=== PATIENT | female | born 1960 | race Two or more races ===

== ENCOUNTER 2020-02-25 07:21 | Emergency (ER) | payer OTHER ==
[~2020-02-25] VITALS: Ht 152.4 cm; Wt 63.5 kg
[~2020-02-25 07:21] MED LIST: CIPRO500 MG; URETRON DS1 TAB
== END 2020-02-25 12:54 | disposition home or self-care (01) ==
LOC: ER 07:21
DX: K21.9 Gastro-esophageal reflux disease without esophagitis (principal); J06.9 Acute upper respiratory infection, unspecified; Z03.818 Encounter for observation for suspected exposure to other biological agents ruled out; R07.89 Other chest pain

== ENCOUNTER 2020-03-20 10:45 | Inpatient (IN) | payer OTHER ==
[~2020-03-20] VITALS: Ht 157.5 cm; Wt 65.8 kg
== END 2020-03-23 11:46 | disposition home or self-care (01) | DRG 392 ==
LOC: ER 10:45 → MEDJ 21:26
PROVIDERS: ADMIT Internal Medicine; ATTEND Internal Medicine
PROC: BW21ZZZ Computerized Tomography (CT Scan) of Abdomen and Pelvis (ICD-10-PCS; principal; 2020-03-20)
DX: K52.89 Other specified noninfective gastroenteritis and colitis (principal); Z20.822 Contact with and (suspected) exposure to COVID-19; K21.9 Gastro-esophageal reflux disease without esophagitis